=== PATIENT | male | born 1975 | race Hispanic/Latino ===

== ENCOUNTER 2021-05-25 17:13 | Emergency (ER) | payer SELFPAY ==
[~2021-05-25] VITALS: Ht 180.3 cm; Wt 135.2 kg
[2021-05-25] MEDS ORDERED: CASIRIVIMAB/IMDEVIMAB 10 ML in SODIUM CHLORIDE 0.9% 100 ML IV ONE (18:30)
== END 2021-05-25 20:26 | disposition home or self-care (01) ==
LOC: ER 17:19
DX: R05 Cough (principal); U07.1 COVID-19; R51.9 Headache, unspecified
CPT/HCPCS: 99283; J7050; U0002